=== PATIENT | male | born 1980 | race Caucasian/White ===

== ENCOUNTER → 2017-07-21 | Outpatient (CLI) | payer OTHER | LOC: FIMAGING 07:31 | PROVIDERS: ATTEND Radiology Diagnostic Radiology | DX: I83.811 Varicose veins of right lower extremity with pain (principal) ==

== ENCOUNTER 2017-09-10 07:20 | Day surgery (SDC) | payer OTHER ==
[2017-09-10] MEDS ORDERED: HEPARIN 10,000 UNIT/10 ML MDV (1,000 UNIT/ML) IVP PRN (07:41)
[2017-09-10] MEDS ORDERED: NALOXONE HCL 0.4 MG/ML INJ IVP PRN (07:41)
[2017-09-10] MEDS ORDERED: FLUMAZENIL 0.5 MG/5 ML MDV IVP PRN (07:41)
[2017-09-10] MEDS ORDERED: NS 1,000 ML IV ONE (07:41)
[2017-09-10] MEDS ORDERED: ALTEPLASE 2 MG VIAL IVP PRN (07:41)
[2017-09-10] MEDS ORDERED: MIDAZOLAM 2 MG/2 ML VIAL IVP PRN (07:41)
[2017-09-10] MEDS ORDERED: LIDO/EPI 1% **for epidural** 30 ML SDV ONE (07:41)
[2017-09-10] MEDS ORDERED: fentaNYL 100 MCG/2 ML INJ IVP PRN (07:41)
[2017-09-10] MEDS ORDERED: MEPERIDINE 25 MG/ML SYR IVP PRN (07:41)
[2017-09-10] MEDS ORDERED: GLUCAGON HCL 1 MG VIAL IVP PRN (07:41)
[2017-09-10] MEDS ORDERED: SODIUM TETRADECYL SULFATE 3% 2 ML VIAL IV ONE (07:41)
[2017-09-10] MEDS ORDERED: ONDANSETRON 4 MG/2 ML VIAL IVP ONE (07:41)
[2017-09-10] MEDS ORDERED: PROTAMINE SULFATE 50 MG/5 ML VIAL IVP PRN (07:41)
[2017-09-10] MEDS ORDERED: ceFAZolin 2 GM/DEXTROSE 100 ML IV ONE (08:00)
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
--- NOTE | 2017-09-10 08:56 | PDPROPOC ---
Sedation Plan of Care Sedation Plan of Care: vital signs stable, mental status noted, patient educated of risks, benefits, alternatives, patient can tolerate sedation ASA Classification: ASA 1 Planned drugs: fentanyl, midazolam Mallampati Score: Class 2 Mallampati Reference Image: Patient passed 3-3-2 rule?: Yes
[2017-09-10] MEDS ORDERED: IBUPROFEN 200 MG TAB PO ONE (10:42)
[2017-09-10] MEDS ORDERED: ONDANSETRON 4 MG/2 ML VIAL IVP PRN (10:42)
[2017-09-10] MEDS ORDERED: ONDANSETRON DISINTEGRATING 4 MG TAB PO PRN (10:42)
[2017-09-10] MEDS ORDERED: HYDROCODONE/APAP 5/325 TAB PO PRN (10:42)
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
[2017-09-10] MEDS ORDERED: NS 1,000 ML IV SCH (10:45)
[2017-09-10 14:36] VITALS: BP 128/78
== END 2017-09-10 14:43 | disposition home or self-care (01) ==
LOC: FIMAGING 07:20
PROVIDERS: ATTEND Radiology Diagnostic Radiology
PROC: 065P3ZZ Destruction of Right Saphenous Vein, Percutaneous Approach (ICD-10-PCS; principal; 2017-09-10 10:15)
PROC: 3E033TZ Introduction of Destructive Agent into Peripheral Vein, Percutaneous Approach (ICD-10-PCS; principal; 2017-09-10 10:15)
PROC: 06DY3ZZ Extraction of Lower Vein, Percutaneous Approach (ICD-10-PCS; principal; 2017-09-10 10:15)
DX: I83.811 Varicose veins of right lower extremity with pain (principal); I83.891 Varicose veins of right lower extremity with other complications
CPT/HCPCS: 36471; 36478; 37799; 99152; 99153; C1769; J0690; J2250; J2310; J3010